=== PATIENT | female | born 1970 | race Two or more races ===

== ENCOUNTER 2023-09-29 09:43 | Outpatient (CLI) | payer OTHER | END 2023-09-29 09:56 | disposition home or self-care (01) | LOC: MRI 09:43 | PROVIDERS: ATTEND Orthopaedic Surgery | DX: M25.561 Pain in right knee (principal); M25.562 Pain in left knee; S83.201A Bucket-handle tear of unspecified meniscus, current injury, left knee, initial encounter | CPT/HCPCS: 73721 ==

== ENCOUNTER 2023-11-12 09:37 | Inpatient (IN) | payer OTHER ==
[~2023-11-12] VITALS: Ht 167.6 cm; Wt 97.5 kg
[2023-11-12 10:34] LABS: URINE APPEARANCE Clear; URINE BILIRRUBIN Negative (NEGATIVE); URINE BLOOD Negative; URINE COLOR Yellow; URINE GLUCOSE Negative (NEGATIVE); URINE LEUKOCYTE Negative; URINE NITRATE Negative; URINE PROTEIN Negative (NEGATIVE); URINE UROBILINOGEN 0.2 E.U./dl
[2023-11-12 10:39] LABS: URINE BACTERIA 420.7 uL (0.0-1933); URINE EPITHELIAL CELLS 15.1 uL (0.0-38.8); URINE RBC 2.1 uL (0.0-20.8); URINE WBC 6.9 uL (0.0-23.2)
[2023-11-12 10:42] LABS: HEMATOCRIT 38.9 % (36.0-45.00); HEMOGLOBIN 13.3 g/dL (12.0-15.00); MEAN CELL VOLUME 91.4 fL (80.00-100.00); MEAN CORPUSCULAR HEMOGLOBIN 31.2 pg (27.00-32.0); MEAN CORPUSCULAR HGB CONC 34.2 g/dl (32.0-36.0); PLATELET COUNT 282 K/uL (150-450); RED BLOOD COUNT 4.25 M/uL (4.00-6.00); RED CELL DISTRIBUTION WIDTH 13.7 % (11.5-14.5)
[2023-11-12 11:18] LABS: ALBUMIN 3.5 gm/dL (3.4-5.0); BILIRUBIN TOTAL 0.32 mg/dL (0.3-1.2); CALCIUM 9.3 mg/dL (8.5-10.1); CREATININE SERUM 0.6 mg/dL (0.55-1.02); GFR 104.18; GLOBULINA 3.9 G/DL (2.4-3.5); INR 0.94; PARTIAL THROMBOPLASTIN TIME 28.1 SECONDS (22.0-34.0); PROTHROMBIN TIME 9.9 SECONDS (9.0-11.5); TOTAL PROTEIN 7.4 gm/dL (6.4-8.2)
[2023-11-12] MEDS ORDERED: ZESTRIL30 MG PO (13:01)
[2023-11-12] MEDS ORDERED: NABUMETONE750 MG PO (13:01)
[2023-11-12] MEDS ORDERED: METHOTREXA25 MG/1 M5 SUBCUTANEO (13:02)
[2023-11-12] MEDS ORDERED: CHILDREN'S ASPI81 MG PO (13:02)
[2023-11-12] MEDS ORDERED: HYDRODIURIL12.5 MG PO (13:02)
[2023-11-12] MEDS ORDERED: HORIZANT300 MG PO (13:03)
[2023-11-12] MEDS ORDERED: PEPCID40 MG PO (13:03)
[2023-11-12] MEDS ORDERED: ATORVASTATIN CA10 MG PO (13:03)
[2023-11-12] MEDS ORDERED: D3-5000125 MCG PO (13:05)
[2023-12-01] MEDS ORDERED: AMITRIPTYLINE H25 MG (09:21)
[2023-12-01] MEDS ORDERED: GABAPENTIN400 MG (09:21)
[2023-12-01] MEDS ORDERED: SERTRALINE HCL25 MG (09:21)
[2023-12-02 06:43] LABS: HEMATOCRIT 35.9 % (36.0-45.00); HEMOGLOBIN 12.4 g/dL (12.0-15.00); MEAN CELL VOLUME 93.2 fL (80.00-100.00); MEAN CORPUSCULAR HEMOGLOBIN 32.1 pg (27.00-32.0); MEAN CORPUSCULAR HGB CONC 34.5 g/dl (32.0-36.0); PLATELET COUNT 268 K/uL (150-450); RED BLOOD COUNT 3.85 M/uL (4.00-6.00); RED CELL DISTRIBUTION WIDTH 13.4 % (11.5-14.5)
[2023-12-03 07:01] LABS: HEMATOCRIT 30.1 % (36.0-45.00); HEMOGLOBIN 10.5 g/dL (12.0-15.00); MEAN CORPUSCULAR HEMOGLOBIN 31.8 pg (27.00-32.0); MEAN CORPUSCULAR HGB CONC 34.9 g/dl (32.0-36.0); PLATELET COUNT 224 K/uL (150-450); RED BLOOD COUNT 3.31 M/uL (4.00-6.00); RED CELL DISTRIBUTION WIDTH 13.1 % (11.5-14.5)
== END 2023-12-03 13:46 | DRG 470 ==
LOC: O/R 12-01 06:00 → SURG 12-01 06:00
PROVIDERS: ADMIT Orthopaedic Surgery; ATTEND Orthopaedic Surgery
PROC: 0SRD0JZ Replacement of Left Knee Joint with Synthetic Substitute, Open Approach (ICD-10-PCS; principal; 2023-12-01 07:00)
DX: M17.12 Unilateral primary osteoarthritis, left knee (principal); M85.662 Other cyst of bone, left lower leg